=== PATIENT | male | born 1975 | race Caucasian/White ===

== ENCOUNTER 2017-11-22 21:16 | Emergency (ER) | payer SELFPAY | END 2017-11-22 21:58 | LOC: NAV ERS 21:16 | DX: Z02.89 Encounter for other administrative examinations (principal); Z97.0 Presence of artificial eye; F17.210 Nicotine dependence, cigarettes, uncomplicated; F31.9 Bipolar disorder, unspecified | CPT/HCPCS: 99283 ==